=== PATIENT | male | born 1995 | race Caucasian/White ===

== ENCOUNTER 2022-01-17 02:40 | Emergency (ER) | payer OTHER, SELFPAY ==
--- NOTE | ~2022-01-17 | CT_ITS ---
EXAMINATION: CT lumbar spine wo con DATE: 01/17/2022 03:47 INDICATION: Low back pain post fall TECHNIQUE: Computed tomography (CT) of the lumbar spine was performed without intravenous contrast. A utomated exposure control and iterative reconstruction technique were employed. The dose-length produ ct was 447.55 mGy-cm. COMPARISON: None FINDINGS: 5 degree lumbar levocurvature. Sagittal alignment is normal. Vertebral body heights are normal. No fr acture. Mild disc height loss at L4-L5 and L5-S1. Disc bulge at L4-L5 resulting in mild central canal stenosis. More prominent central disc protrusion versus extrusion at L5-S1 which also results in mil d central canal stenosis. The remaining discs do not appear to extend beyond the endplate margins. Mu ltilevel mild facet osteoarthritis throughout the lumbar spine and both the left and right. No neural foraminal stenosis. Paravertebral soft tissues are unremarkable. IMPRESSION: 1. Mild lower lumbar spondylosis. No acute osseous abnormality. Reviewed, dictated and finalized at location [facility].
[2022-01-17 02:35] VITALS: BP 138/73; PULSE 88; RESP 20; TEMP 36.9; O2SAT 99
--- NOTE | 2022-01-17 05:21 | ED.BACK ---
HPI - Back Pain/Injury General Chief Complaint: Back Pain/Injury Stated Complaint: BACK PAIN Time Seen by Provider: 01/17/22 02:49 History of Present Illness HPI Narrative: Patient states that about 2 weeks ago, he had been bouldering and fell and landed on his lower back about 5 foot off the ground, he states that it was excruciating pain at the time, and he was barely able to walk and was only able to hobble around. He used lots of ice, took ibuprofen, and states that over the last 2 weeks he has been feeling much better, he never had any numbness or tingling, weakness, difficulty urinating, pain into his legs, or any other issues. However today when he was at home he seemed to feel his back popped and he started having severe pain yet again. Related Data Allergies Allergy/AdvReac Type Severity Reaction Status Date / Time No Known Allergies Allergy Unverified 05/08/20 09:17 Review of Systems Review of Systems: CONST: No fever. HEENT: No head trauma C/V: No chest pain RESP: No cough GI: No abdominal pain BACK: Back pain : No dysuria. M/S:Low back pain SKIN: No rash. NEURO: [No headache or focal numbness or weakness] PSYCH: [No depression] [facility] Surgical History Surgical History History of adenectomy Family History Family History Father No known health problems Mother Asthma Migraines Social History Social History Smoking status: Never smoker Substance use: never Exam Narrative: EXAMINATION OF ORGAN SYSTEMS/BODY AREAS: Constitutional: Vital signs per nursing GENERAL: Appears slightly uncomfortable but otherwise no acute distress and nontoxic HEAD: Normal with no signs of head trauma. EYES: EOMI, conjunctiva normal ENT: Hearing grossly intact LUNGS: Nonlabored breathing. HEART: [Regular rate and rhythm] ABD: [Soft], [nontender to palpation] EXT: Normal range of motion BACK: Minimal midline tenderness L4-5, pain more on left lower back SKIN: [No rashes or lesions.] NEURO: [Alert and oriented x 3. No gross focal sensory or strength deficits, no saddle anesthesia or weakness of legs.] PSYCH: Normal affect Course Vital Signs Vital signs: Vital Signs Temperature 98.5 F 01/17/22 02:35 Pulse Rate 88 01/17/22 02:35 Respiratory Rate 20 01/17/22 02:35 Blood Pressure 138/73 01/17/22 02:35 Pulse Oximetry 99 01/17/22 02:35 Oxygen Delivery Room Air 01/17/22 02:35 Temperature 98.5 F 01/17/22 02:35 Pulse Rate 76 01/17/22 06:12 Respiratory Rate 18 01/17/22 06:12 Blood Pressure 118/68 01/17/22 06:12 Pulse Oximetry 100 01/17/22 06:12 Oxygen Delivery Room Air 01/17/22 02:35 MDM - Back Pain/Injury MDM Narrative Medical decision making narrative: ED COURSE AND MEDICAL DECISION MAKING: ? 26 year old male with acute back pain. Normal motor and sensory exam. No evidence of acute cord compression, osteomyelitis/discitis or cauda equina without saddle anesthesia, urinary retention/incontinence, numbness/tingling in lower extremities, fever, history of IV drug use, cancer or immunosuppression. Doubt AAA or aortic dissection without severe pain/discomfort or any neurovascular deficits. [Ketorolac 30mg IM and diazepam 5mg PO] given for symptomatic relief. CT L spine obtained shows possible disc protrusion L3-5 without severe canal or foraminal stenosis. On reevaluation, the symptoms are improved. Patient is able to rest more comfortably. He is able to ambulate with normal steady gait. [I discussed management of acute back pain in detail, explaining the need to remain active and the goals of pain control.] Patient is given return precautions and instructed to come back at any point in time for worsening pain, fevers, weakness, difficulty walking, urinary or fecal incontinence. Patient expressed understanding of instructions.
[2022-01-17] MEDS: KETOROLAC 30 MG/ML VIAL (*BKC) IM (06:04)
[2022-01-17] MEDS: diazePAM (*CRX) 5 MG TABLET PO (06:05)
[2022-01-17 06:12] VITALS: BP 118/68; PULSE 76; RESP 18; O2SAT 100
== END 2022-01-17 06:20 | disposition home or self-care (01) ==
PROVIDERS: Emergency Provider Emergency Medicine; PCP Internal Medicine
DX: S39.012A Strain of muscle, fascia and tendon of lower back, initial encounter (principal); W17.89XA Other fall from one level to another, initial encounter; Y93.31 Activity, mountain climbing, rock climbing and wall climbing
CPT/HCPCS: 72131; 96372; 99284; A9270; J1885

== ENCOUNTER 2023-12-01 15:02 | Outpatient (CLI) | payer OTHER, SELFPAY ==
--- NOTE | ~2023-12-01 | MR_ITS ---
MRI of the right hip Clinical history: Pain Technique: Coronal T1-weighted, T2-weighted, and proton-density fat-sat images, and axial T1-weighted and proton-density fat-sat images were acquired through the pelvis. Coronal T2-weighted images and c oronal, axial, and sagittal proton-density fat-sat images were acquired through the right hip. Findings: There is no fracture or avascular necrosis of either hip. Bone marrow signals the proximal femora and pelvic bones are unremarkable. Bilateral hip joints are unremarkable. No joint effusion or significant degenerative change identified. No evidence for right acetabular labral tear. Visualized musculature about the pelvis and right hip is unremarkable. No muscle atrophy or edema marta ntified. Tendons are intact. No soft tissue mass or fluid collection identified. No evidence for burs itis. IMPRESSION: No significant abnormality seen. Reviewed, dictated and finalized at [facility].
== END 2023-12-01 15:03 ==
LOC: MICIMG 15:03
PROVIDERS: PCP Internal Medicine; Referring Provider Internal Medicine; Visit Provider Orthopaedic Surgery
DX: M25.551 Pain in right hip (principal)
CPT/HCPCS: 73721